=== PATIENT | male | born 1940 | race Caucasian/White ===

== ENCOUNTER 2022-05-16 08:52 | Outpatient (CLI) | payer MEDICARE ==
[~2022-05-16 08:52] MED LIST: ALBU2.5V7 NEB; AMOX-580 PO; ASPI-611 PO; ATOR40TA PO; FLO0.4C PO; FLUT1AER INH; FURO40TA4 PO; IPRA3AMP9 NEB; LISI20TA28 PO; O2 NAS; PANT-47 PO; PRED20TA PO; iron PO
== END 2022-05-16 23:59 | disposition home or self-care (01) ==
LOC: RT 08:52
PROVIDERS: ATTEND Internal Medicine Critical Care Medicine
DX: J44.9 Chronic obstructive pulmonary disease, unspecified (principal); I10 Essential (primary) hypertension; F41.9 Anxiety disorder, unspecified; Z95.5 Presence of coronary angioplasty implant and graft
CPT/HCPCS: 94618

== ENCOUNTER 2022-08-13 14:22 | Inpatient (IN) | payer MEDICARE ==
[~2022-08-13] VITALS: Ht 175.3 cm; Wt 84.1 kg
[2022-08-13] MEDS ORDERED: ipratropium/albuterol 3ml nebule NEB ONE (14:35)
[2022-08-13] MEDS ORDERED: methylPREDNISolone sod succ 125mg/2ml vial IV ONE (14:35)
[2022-08-13 15:05] LABS: ABG BASE EXCESS 0.9 mmol/L (-2.0-2.0); ABG HCO3 30.2 mmol/L (22.0-26.0); ABG OXYGEN SATURATION 96.4 % (94-97); ABG PCO2 (T) 74.7 mmHg (35.0-48.0); ALLEN'S TEST POSITIVE; FCOHb 0.3 % (0.0-3.9); FMetHb 0.4 % (0.0-1.5); FO2Hb 95.7 % (94-97); RESPIRATORY RATE 10 b/min; TIDAL VOLUME 519 mL; TOTAL HEMOGLOBIN 11.7 G/dl (14.0-17.9)
[2022-08-13 15:05] LABS: BASOPHILS % (AUTO) 0.2 % (0-1); EOSINOPHILS % (AUTO) 0.4 % (0-6); HEMATOCRIT 35.6 % (42.0-52.0); HEMOGLOBIN 11.2 g/dl (14.0-17.9); LYMPHOCYTES # (AUTO) 1.7 X10'3 (1.1-4.8); LYMPHOCYTES % (AUTO) 12.8 % (21-51); MEAN CORPUSCULAR HEMOGLOBIN 31.4 PG (27.0-31.0); MEAN CORPUSCULAR HGB CONC 31.6 g/dL (33.0-36.5); MEAN CORPUSCULAR VOLUME 99.5 FL (78-98); MEAN PLATELET VOLUME 7.5 FL (7.4-10.4); MONOCYTES # (AUTO) 2.3 X10'3 (0-0.9); MONOCYTES % (AUTO) 17.4 % (2-12); NEUTROPHILS # (AUTO) 9.2 X10'3 (1.8-7.7); NEUTROPHILS % (AUTO) 69.2 % (42-75); PLATELET COUNT 281 X10'3 (140-440); RED BLOOD COUNT 3.58 X10'6 (4.70-6.10); RED CELL DISTRIBUTION WIDTH 13.8 % (11.5-14.5); WHITE BLOOD COUNT 13.3 X10'3 (4.5-11.0)
[2022-08-13 15:14] LABS: ALANINE AMINOTRANSFERASE 41 U/L (12-78); ALBUMIN 3.2 G/DL (3.4-5.0); ALBUMIN/GLOBULIN RATIO 0.7 (1.1-1.5); ALKALINE PHOSPHATASE 64 IU/L (46-116); ANION GAP 9 (8-16); ASPARTATE AMINO TRANSFERASE 21 U/L (10-37); BILIRUBIN,TOTAL 0.3 MG/DL (0.1-1.0); BLOOD UREA NITROGEN 71 MG/DL (7-18); BUN/CREATININE RATIO 31.1 (10.0-20.0); CALCIUM 9.5 MG/DL (8.5-10.1); CHLORIDE 106 MMOL/L (99-107); CREATININE 2.28 MG/DL (0.60-1.10); GLUCOSE 166 MG/DL (70-104); POTASSIUM 4.5 MMOL/L (3.5-5.1); SODIUM 146 MMOL/L (135-145); TOTAL CARBON DIOXIDE 30.8 MMOL/L (24-32); TOTAL PROTEIN 7.7 G/DL (6.4-8.2); eGFR 28 ML/MIN
[2022-08-13 16:34] LABS: ABG BASE EXCESS -2.9 mmol/L (-2.0-2.0); ABG PCO2 (T) 66.5 mmHg (35.0-48.0); ABG PO2 (T) 129.4 mmHg (75.0-100.0); ALLEN'S TEST POSITIVE; FCOHb 0.3 % (0.0-3.9); FMetHb 0.3 % (0.0-1.5); FO2Hb 97.4 % (94-97); RESPIRATORY RATE 10 b/min; TIDAL VOLUME 455 mL; TOTAL HEMOGLOBIN 11.7 G/dl (14.0-17.9)
[2022-08-13] MEDS ORDERED: magnesium 2GM in 50ml NS 50 ML IV PRN (16:55)
[2022-08-13] MEDS ORDERED: magnesium 4gm in 100ml NS 100 ML IV PRN (16:55)
[2022-08-13] MEDS ORDERED: magnesium Cl slow-release 64mg tablet PO PRN (16:55)
[2022-08-13] MEDS ORDERED: potassium Cl 40MEQ/1/2NS 520ml 520 ML IV PRN (16:55)
[2022-08-13] MEDS ORDERED: normal saline 1000ml 1,000 ML IV SCH (16:55)
[2022-08-13] MEDS ORDERED: acetaminophen 325mg tablet PO PRN ×2 (16:55)
[2022-08-13] MEDS ORDERED: potassium Cl 20 mEq SR tablet PO PRN ×2 (16:55)
[2022-08-13] MEDS ORDERED: ondansetron/PF 4mg/2ml inj IV PRN (16:55)
[2022-08-13] MEDS: albuterol 2.5 MG/3 ML nebule NEB SCH ×2 (19:24→23:04)
[2022-08-13] MEDS: enoxaparin 40mg/0.4ml syringe SQ SCH (19:53)
[2022-08-13] MEDS: methylPREDNISolone sod succ 125mg/2ml vial IV SCH (19:53)
--- NOTE | 2022-08-13 20:43 | NUR ---
Patient given sandwich, placed on nasal cannula and is tolerating well. at bedside.
--- NOTE | 2022-08-13 22:20 | NUR ---
Received report from ED RNZo
[2022-08-13 22:45] VITALS: BP 113/67
[2022-08-14 03:00] VITALS: BP 141/56
[2022-08-14] MEDS: albuterol 2.5 MG/3 ML nebule NEB SCH ×5 (03:01→19:24)
[2022-08-14 06:00] VITALS: BP 98/53
--- NOTE | 2022-08-14 06:40 | NUR ---
Problems reprioritized. Patient report given, questions answered & plan of care reviewed with EARL Dumont.
--- NOTE | 2022-08-14 06:54 | NUR ---
Patient in room PCU 3017. I have received report from EARL ALBERT, and had the opportunity to ask questions and assume patient care.
[2022-08-14 07:10] LABS: BASOPHILS % (AUTO) 0 % (0-1); EOSINOPHILS % (AUTO) 0 % (0-6); HEMATOCRIT 32.1 % (42.0-52.0); HEMOGLOBIN 10.2 g/dl (14.0-17.9); LYMPHOCYTES # (AUTO) 0.6 X10'3 (1.1-4.8); LYMPHOCYTES % (AUTO) 4.6 % (21-51); MEAN CORPUSCULAR HEMOGLOBIN 31.2 PG (27.0-31.0); MEAN CORPUSCULAR HGB CONC 31.7 g/dL (33.0-36.5); MEAN CORPUSCULAR VOLUME 98.5 FL (78-98); MEAN PLATELET VOLUME 7.8 FL (7.4-10.4); MONOCYTES # (AUTO) 0.5 X10'3 (0-0.9); NEUTROPHILS # (AUTO) 11.7 X10'3 (1.8-7.7); NEUTROPHILS % (AUTO) 91.4 % (42-75); PLATELET COUNT 274 X10'3 (140-440); RED BLOOD COUNT 3.25 X10'6 (4.70-6.10); RED CELL DISTRIBUTION WIDTH 13.6 % (11.5-14.5); WHITE BLOOD COUNT 12.8 X10'3 (4.5-11.0)
[2022-08-14 07:28] LABS: ALANINE AMINOTRANSFERASE 37 U/L (12-78); ALBUMIN 2.8 G/DL (3.4-5.0); ALBUMIN/GLOBULIN RATIO 0.7 (1.1-1.5); ALKALINE PHOSPHATASE 60 IU/L (46-116); ANION GAP 11 (8-16); ASPARTATE AMINO TRANSFERASE 18 U/L (10-37); BILIRUBIN,TOTAL 0.2 MG/DL (0.1-1.0); BLOOD UREA NITROGEN 81 MG/DL (7-18); CALCIUM 9.5 MG/DL (8.5-10.1); CHLORIDE 107 MMOL/L (99-107); CREATININE 2.53 MG/DL (0.60-1.10); GLUCOSE 160 MG/DL (70-104); POTASSIUM 4.7 MMOL/L (3.5-5.1); SODIUM 147 MMOL/L (135-145); TOTAL CARBON DIOXIDE 29.3 MMOL/L (24-32); eGFR 25 ML/MIN
[2022-08-14 07:51] LABS: ABG BASE EXCESS 1.6 mmol/L (-2.0-2.0); ABG HCO3 27.4 mmol/L (22.0-26.0); ABG OXYGEN SATURATION 93.9 % (94-97); ABG PCO2 (T) 48.9 mmHg (35.0-48.0); ABG PO2 (T) 72.6 mmHg (75.0-100.0); ALLEN'S TEST POSITIVE; FCOHb 0.3 % (0.0-3.9); FMetHb 0.2 % (0.0-1.5); FO2Hb 93.4 % (94-97); RESPIRATORY RATE 10 b/min; TIDAL VOLUME 648 mL; TOTAL HEMOGLOBIN 10.2 G/dl (14.0-17.9)
[2022-08-14] MEDS: methylPREDNISolone sod succ 125mg/2ml vial IV SCH ×2 (08:59→20:05)
[2022-08-14] MEDS: CefTRIAXone 2gm/D5W 50ml BAG 50 ML IV SCH (09:00)
[2022-08-14 11:00] VITALS: BP 90/51
[2022-08-14 15:00] VITALS: BP 140/50
[2022-08-14 18:00] VITALS: BP 137/43
--- NOTE | 2022-08-14 18:27 | NUR ---
ATTEMPTED TO PLACE BIPAP ON PT THROUGHOUT THE DAY, PT EDUCATED ON THE BENEFITS OF BIPAP, PT ALWAYS REFUSED. NOTIFIED.
--- NOTE | 2022-08-14 18:28 | NUR ---
Problems reprioritized. Patient report given, questions answered & plan of care reviewed with EARL MANZANO.
[2022-08-14] MEDS: enoxaparin 40mg/0.4ml syringe SQ SCH (20:05)
[2022-08-14] MEDS ORDERED: ipratropium/albuterol 3ml nebule NEB PRN (20:10)
[2022-08-14 22:00] VITALS: BP 99/69
[2022-08-14] MEDS: ipratropium/albuterol 3ml nebule NEB SCH (23:30)
[2022-08-14] MEDS: dextrose 5%-water 1,000 ML IV SCH (23:30)
[2022-08-15 03:11] VITALS: BP 105/72
[2022-08-15 06:00] VITALS: BP 148/48
--- NOTE | 2022-08-15 06:26 | NUR ---
Problems reprioritized. Patient report given, questions answered & plan of care reviewed with EARL TOWNSEND.
[2022-08-15 06:36] LABS: BASOPHILS % (AUTO) 0 % (0-1); EOSINOPHILS % (AUTO) 0 % (0-6); HEMOGLOBIN 10.3 g/dl (14.0-17.9); LYMPHOCYTES # (AUTO) 0.7 X10'3 (1.1-4.8); LYMPHOCYTES % (AUTO) 3.5 % (21-51); MEAN CORPUSCULAR HEMOGLOBIN 31.8 PG (27.0-31.0); MEAN CORPUSCULAR HGB CONC 32.1 g/dL (33.0-36.5); MEAN CORPUSCULAR VOLUME 98.9 FL (78-98); MEAN PLATELET VOLUME 7.8 FL (7.4-10.4); MONOCYTES # (AUTO) 1.3 X10'3 (0-0.9); NEUTROPHILS % (AUTO) 89.5 % (42-75); PLATELET COUNT 275 X10'3 (140-440); RED BLOOD COUNT 3.23 X10'6 (4.70-6.10); RED CELL DISTRIBUTION WIDTH 13.7 % (11.5-14.5)
[2022-08-15 07:00] LABS: ALANINE AMINOTRANSFERASE 42 U/L (12-78); ALBUMIN 2.7 G/DL (3.4-5.0); ALBUMIN/GLOBULIN RATIO 0.7 (1.1-1.5); ALKALINE PHOSPHATASE 59 IU/L (46-116); ANION GAP 11 (8-16); ASPARTATE AMINO TRANSFERASE 27 U/L (10-37); BILIRUBIN,TOTAL 0.1 MG/DL (0.1-1.0); BLOOD UREA NITROGEN 91 MG/DL (7-18); BUN/CREATININE RATIO 37.6 (10.0-20.0); CALCIUM 9.2 MG/DL (8.5-10.1); CHLORIDE 105 MMOL/L (99-107); CREATININE 2.42 MG/DL (0.60-1.10); GLUCOSE 165 MG/DL (70-104); POTASSIUM 4.6 MMOL/L (3.5-5.1); SODIUM 144 MMOL/L (135-145); TOTAL PROTEIN 6.5 G/DL (6.4-8.2); eGFR 26 ML/MIN
--- NOTE | 2022-08-15 07:07 | NUR ---
Patient in room PCU 3017. I have received report from EARL MANZANO, and had the opportunity to ask questions and assume patient care. PT RESTING COMFORTABLY, NO S/S OF DISTRESS. WILL CONTINUE TO MONITOR.
[2022-08-15] MEDS: methylPREDNISolone sod succ 125mg/2ml vial IV SCH (07:29)
[2022-08-15] MEDS: CefTRIAXone 2gm/D5W 50ml BAG 50 ML IV SCH (07:29)
[2022-08-15] MEDS: dextrose 5%-water 1,000 ML IV SCH ×2 (07:32→16:10)
[2022-08-15] MEDS: ipratropium/albuterol 3ml nebule NEB SCH ×5 (08:33→23:39)
[2022-08-15 11:00] VITALS: BP 147/45
[2022-08-15 12:19] LABS: CLARITY,URINE CLEAR (Clear); COLOR,URINE YELLOW (Yellow); GLUCOSE, URINE NEGATIVE (Neg); KETONES,URINE NEGATIVE (Neg); LEUKOCYTE ESTERASE ,URINE NEGATIVE (Neg); NITRITES, URINE NEGATIVE (Neg); OCCULT BLOOD,URINE SMALL (Neg); PH,URINE 5.5 (4.8-8.0); PROTEIN,URINE TRACE mg/dl (Neg); UROBILINOGEN,URINE 0.2 E.U/dL (0.2-1.0)
[2022-08-15 12:21] LABS: UA COLLECTION TYPE NON-SPECIFIED
[2022-08-15 12:22] LABS: SODIUM,URINE RANDOM < 15 MEQ/L; TOTAL PROTEIN,URINE RANDOM 38.1 MG/DL
[2022-08-15 12:27] LABS: BACTERIA,URINE FEW /HPF (Neg); MUCUS STRANDS FEW /LPF (Neg); RBC,URINE 0-2 /HPF (0-2); SQUAMOUS EPITHELIAL CELL,UR FEW /LPF (FEW); WBC,URINE NONE SEEN /HPF (0-4)
[2022-08-15 12:29] LABS: OSMOLALITY UA 489 MOSM/K (50-1400)
[2022-08-15 12:50] LABS: UA EOSINOPHILS NO EOS /HPF
[2022-08-15] MEDS ORDERED: FLO0.4C PO (13:05)
[2022-08-15] MEDS ORDERED: PANT40TA54 PO (13:05)
[2022-08-15] MEDS ORDERED: AMLO5TAB16 PO (13:05)
[2022-08-15] MEDS ORDERED: FURO40TA4 PO (13:05)
[2022-08-15] MEDS ORDERED: ATOR40TA72 PO (13:05)
[2022-08-15 15:00] VITALS: BP_SYST 111; BP_SYST 125; BP_DIAS 52; BP_DIAS 89
[2022-08-15 18:00] VITALS: BP 128/54
--- NOTE | 2022-08-15 18:47 | NUR ---
Problems reprioritized. Patient report given, questions answered & plan of care reviewed with EARL MANZANO.
[2022-08-15] MEDS: tamsulosin 0.4mg capsule PO SCH (20:17)
[2022-08-15] MEDS: heparin, porcine 5000 units/ml vial SQ SCH (20:17)
[2022-08-15] MEDS: atorvastatin 20mg tablet PO SCH (20:17)
[2022-08-15] MEDS: methylPREDNISolone sod succ/PF 40mg inj. IV SCH (20:18)
[2022-08-15 22:00] VITALS: BP 132/42
[2022-08-16] MEDS: dextrose 5%-water 1,000 ML IV SCH ×3 (00:12→22:10)
[2022-08-16 02:00] VITALS: BP 131/87
[2022-08-16] MEDS: ipratropium/albuterol 3ml nebule NEB SCH ×5 (02:54→23:45)
[2022-08-16 06:00] VITALS: BP 133/100
--- NOTE | 2022-08-16 06:19 | NUR ---
Problems reprioritized. Patient report given, questions answered & plan of care reviewed with EARL TOWNSEND.
--- NOTE | 2022-08-16 07:08 | NUR ---
Patient in room PCU 3017. I have received report from EARL MANZANO, and had the opportunity to ask questions and assume patient care.
[2022-08-16 07:24] LABS: BASOPHILS % (AUTO) 0.1 % (0-1); EOSINOPHILS % (AUTO) 0 % (0-6); HEMATOCRIT 32.6 % (42.0-52.0); HEMOGLOBIN 10.4 g/dl (14.0-17.9); LYMPHOCYTES # (AUTO) 0.6 X10'3 (1.1-4.8); MEAN CORPUSCULAR HEMOGLOBIN 31.7 PG (27.0-31.0); MEAN CORPUSCULAR HGB CONC 31.8 g/dL (33.0-36.5); MEAN CORPUSCULAR VOLUME 99.7 FL (78-98); MEAN PLATELET VOLUME 7.6 FL (7.4-10.4); MONOCYTES # (AUTO) 1.3 X10'3 (0-0.9); MONOCYTES % (AUTO) 6.3 % (2-12); NEUTROPHILS # (AUTO) 18.5 X10'3 (1.8-7.7); NEUTROPHILS % (AUTO) 90.6 % (42-75); PLATELET COUNT 303 X10'3 (140-440); RED BLOOD COUNT 3.27 X10'6 (4.70-6.10); WHITE BLOOD COUNT 20.4 X10'3 (4.5-11.0)
[2022-08-16 07:56] LABS: ALANINE AMINOTRANSFERASE 48 U/L (12-78); ALBUMIN 2.5 G/DL (3.4-5.0); ALBUMIN/GLOBULIN RATIO 0.7 (1.1-1.5); ALKALINE PHOSPHATASE 55 IU/L (46-116); ANION GAP 6 (8-16); ASPARTATE AMINO TRANSFERASE 34 U/L (10-37); BILIRUBIN,TOTAL 0.1 MG/DL (0.1-1.0); BLOOD UREA NITROGEN 81 MG/DL (7-18); BUN/CREATININE RATIO 38.2 (10.0-20.0); CALCIUM 9.2 MG/DL (8.5-10.1); CHLORIDE 103 MMOL/L (99-107); CREATININE 2.12 MG/DL (0.60-1.10); GLUCOSE 175 MG/DL (70-104); POTASSIUM 5.1 MMOL/L (3.5-5.1); SODIUM 139 MMOL/L (135-145); TOTAL CARBON DIOXIDE 30.4 MMOL/L (24-32); TOTAL PROTEIN 6.3 G/DL (6.4-8.2); eGFR 30 ML/MIN
[2022-08-16] MEDS: methylPREDNISolone sod succ/PF 40mg inj. IV SCH ×2 (08:10→21:17)
[2022-08-16] MEDS: CefTRIAXone 2gm/D5W 50ml BAG 50 ML IV SCH (08:12)
[2022-08-16] MEDS: tamsulosin 0.4mg capsule PO SCH ×2 (08:15→21:16)
[2022-08-16] MEDS: amLODIPine 5mg tablet PO SCH (08:16)
[2022-08-16] MEDS: heparin, porcine 5000 units/ml vial SQ SCH ×2 (08:17→21:17)
[2022-08-16 11:00] VITALS: BP 129/56
[2022-08-16 15:00] VITALS: BP 180/58
[2022-08-16] MEDS: mag hydrox/Alum hydrox/simeth 30ml oral suspension PO PRN (15:40)
[2022-08-16 18:00] VITALS: BP_SYST 116; BP_SYST 166; BP_DIAS 57
[2022-08-16] MEDS: atorvastatin 20mg tablet PO SCH (21:16)
[2022-08-16 22:00] VITALS: BP 152/116
[2022-08-17] MEDS: mag hydrox/Alum hydrox/simeth 30ml oral suspension PO PRN ×2 (00:09→08:03)
[2022-08-17 02:00] VITALS: BP 109/81
[2022-08-17] MEDS: dextrose 5%-water 1,000 ML IV SCH (02:31)
[2022-08-17 06:00] VITALS: BP 169/67
--- NOTE | 2022-08-17 07:05 | NUR ---
Problems reprioritized. Patient report given, questions answered & plan of care reviewed with Abbey Mendieta
--- NOTE | 2022-08-17 07:08 | NUR ---
Patient in room PCU 3017. I have received report from EARL Reyes and had the opportunity to ask questions and assume patient care.
[2022-08-17] MEDS: ipratropium/albuterol 3ml nebule NEB SCH ×2 (07:18→10:44)
[2022-08-17 07:49] LABS: BASOPHILS % (AUTO) 0 % (0-1); EOSINOPHILS % (AUTO) 0 % (0-6); HEMATOCRIT 34.9 % (42.0-52.0); HEMOGLOBIN 11.1 g/dl (14.0-17.9); LYMPHOCYTES # (AUTO) 0.6 X10'3 (1.1-4.8); LYMPHOCYTES % (AUTO) 2.8 % (21-51); MEAN CORPUSCULAR HEMOGLOBIN 31.5 PG (27.0-31.0); MEAN CORPUSCULAR HGB CONC 31.7 g/dL (33.0-36.5); MEAN CORPUSCULAR VOLUME 99.4 FL (78-98); MEAN PLATELET VOLUME 7.5 FL (7.4-10.4); MONOCYTES # (AUTO) 1.4 X10'3 (0-0.9); MONOCYTES % (AUTO) 6.5 % (2-12); NEUTROPHILS # (AUTO) 19.8 X10'3 (1.8-7.7); NEUTROPHILS % (AUTO) 90.7 % (42-75); PLATELET COUNT 335 X10'3 (140-440); RED BLOOD COUNT 3.51 X10'6 (4.70-6.10); RED CELL DISTRIBUTION WIDTH 13.7 % (11.5-14.5); WHITE BLOOD COUNT 21.8 X10'3 (4.5-11.0)
[2022-08-17 08:04] LABS: ALANINE AMINOTRANSFERASE 53 U/L (12-78); ALBUMIN 2.7 G/DL (3.4-5.0); ALBUMIN/GLOBULIN RATIO 0.7 (1.1-1.5); ALKALINE PHOSPHATASE 68 IU/L (46-116); ANION GAP 4 (8-16); ASPARTATE AMINO TRANSFERASE 38 U/L (10-37); BILIRUBIN,TOTAL 0.1 MG/DL (0.1-1.0); BLOOD UREA NITROGEN 80 MG/DL (7-18); CALCIUM 9.6 MG/DL (8.5-10.1); CHLORIDE 100 MMOL/L (99-107); GLUCOSE 161 MG/DL (70-104); POTASSIUM 5.3 MMOL/L (3.5-5.1); SODIUM 137 MMOL/L (135-145); TOTAL CARBON DIOXIDE 33.3 MMOL/L (24-32); TOTAL PROTEIN 6.5 G/DL (6.4-8.2); eGFR 32 ML/MIN
[2022-08-17 08:40] LABS: PLATELET ESTIMATE NORMAL; TOTAL CELLS COUNTED 100
[2022-08-17] MEDS: heparin, porcine 5000 units/ml vial SQ SCH (09:16)
[2022-08-17] MEDS: tamsulosin 0.4mg capsule PO SCH (09:17)
[2022-08-17] MEDS: amLODIPine 5mg tablet PO SCH (09:17)
[2022-08-17] MEDS: methylPREDNISolone sod succ/PF 40mg inj. IV SCH (09:18)
[2022-08-17] MEDS: CefTRIAXone 2gm/D5W 50ml BAG 50 ML IV SCH (09:29)
[2022-08-17 11:00] VITALS: BP 156/53
[2022-08-17] MEDS ORDERED: PRED20TA PO (11:22)
[2022-08-17] MEDS ORDERED: AMOX-117 PO (11:22)
--- NOTE | 2022-08-17 15:30 | NUR ---
Pt AOX4, VSS on 3L NC home O2. Pt's PIV removed with cannula intact. Pt's discharge paperwork reviewed and questions answered. Pt to p/u meds at own Pharmacy per pt request. Pt's at bedside and will be driving patient home. Pt in NAD.
== END 2022-08-17 15:23 | disposition home health service (06) | DRG 189 ==
LOC: ER 14:23 → ED HOLD 17:00 → EDBEDREQ 21:14 → PCU 3S 22:35
PROVIDERS: ADMIT Internal Medicine; ATTEND Family Medicine
PROC: 5A09357 Assistance with Respiratory Ventilation, Less than 24 Consecutive Hours, Continuous Positive Airway Pressure (ICD-10-PCS; principal; 2022-08-13)
PROC: 5A09357 Assistance with Respiratory Ventilation, Less than 24 Consecutive Hours, Continuous Positive Airway Pressure (ICD-10-PCS; 2022-08-14)
DX: J96.01 Acute respiratory failure with hypoxia (principal); N17.0 Acute kidney failure with tubular necrosis; J44.1 Chronic obstructive pulmonary disease with (acute) exacerbation; I13.0 Hypertensive heart and chronic kidney disease with heart failure and stage 1 through stage 4 chronic kidney disease, or unspecified chronic kidney disease; I50.32 Chronic diastolic (congestive) heart failure; E87.0 Hyperosmolality and hypernatremia; Z66 Do not resuscitate; Z20.822 Contact with and (suspected) exposure to COVID-19; I25.10 Atherosclerotic heart disease of native coronary artery without angina pectoris; N40.0 Benign prostatic hyperplasia without lower urinary tract symptoms; N18.30 Chronic kidney disease, stage 3 unspecified; Z60.2 Problems related to living alone; E78.00 Pure hypercholesterolemia, unspecified; Z83.3 Family history of diabetes mellitus; Z82.3 Family history of stroke; Z79.899 Other long term (current) drug therapy; Z79.82 Long term (current) use of aspirin; Z87.01 Personal history of pneumonia (recurrent); Z99.81 Dependence on supplemental oxygen
CPT/HCPCS: 36415; 36600; 71045; 76770; 80053; 81001; 82570; 82803; 83605; 83880; 83935; 84133; 84156; 84300; 84484; 85007; 85018; 85025; 85610; 87040; 87081; 87207; 87502; 87503; 87811; 93308; 94640; 94660; 94664; 94668; 94760; 97110; 97116; 97161; 97530; 99285; A4615; A6258; G0378; J0696; J1644; J1650; J2920; J2930; J7030; J7042; J7070

== ENCOUNTER 2022-12-11 12:34 | Inpatient (IN) | payer MEDICARE ==
[2022-12-11] VITALS (14 sets, daily range): BP systolic 64–131; BP diastolic 30–79; PULSE 66–101; RESP 17–27; TEMP 97.7–98.6; O2SAT 92–95
[~2022-12-11] VITALS: Ht 175.3 cm; Wt 65.6 kg
[~2022-12-11 12:34] MED LIST changes: -ALBU2.5V7 NEB; +AMLO5TAB16 PO; -AMOX-580 PO; -ASPI-611 PO; -ATOR40TA PO; +ATOR40TA72 PO; -FLUT1AER INH; -IPRA3AMP9 NEB; -O2 NAS; -PANT-47 PO; +PANT40TA54 PO; -PRED20TA PO; -iron PO
[2022-12-11] MEDS ORDERED: normal saline 1000ML IV soln IV ONE (12:35)
[2022-12-11] MEDS ORDERED: pantoprazole 40mg IV 80 MG in normal saline 100ml IV soln 100 ML IV ONE (12:35)
--- NOTE | 2022-12-11 12:51 | NUR ---
Dr. Quinonez at bedside currently. aware of low BP.
[2022-12-11 13:10] LABS: ABG BASE EXCESS -14.1 mmol/L (-2.0-2.0); ABG HCO3 12.4 mmol/L (22.0-26.0); ABG PCO2 (T) 31.3 mmHg (35.0-48.0); ABG PH (T) 7.216 (7.340-7.440); ABG PO2 (T) 88.3 mmHg (75.0-100.0); ALLEN'S TEST POSITIVE; FCOHb 0.3 % (0.0-3.9); FLOW 4 L/min; FO2Hb 95.7 % (94-97); MODE NC; TOTAL HEMOGLOBIN 10.2 G/dl (14.0-17.9)
[2022-12-11 13:22] LABS: APTT 33 SECONDS (22-32); PROTHROMBIN TIME 10.9 SECONDS (9.0-12.0)
[2022-12-11 13:26] LABS: ALANINE AMINOTRANSFERASE 29 U/L (12-78); ALBUMIN 3.9 G/DL (3.4-5.0); ALBUMIN/GLOBULIN RATIO 0.9 (1.1-1.5); ALKALINE PHOSPHATASE 59 IU/L (46-116); ANION GAP 20 (8-16); ASPARTATE AMINO TRANSFERASE 11 U/L (10-37); BILIRUBIN,TOTAL 0.3 MG/DL (0.1-1.0); BLOOD UREA NITROGEN 141 MG/DL (7-18); BUN/CREATININE RATIO 28.8 (10.0-20.0); CALCIUM 9.6 MG/DL (8.5-10.1); CHLORIDE 99 MMOL/L (99-107); GLUCOSE 164 MG/DL (70-104); POTASSIUM 3.4 MMOL/L (3.5-5.1); SODIUM 136 MMOL/L (135-145); TOTAL CARBON DIOXIDE 17.1 MMOL/L (24-32); TOTAL PROTEIN 8.4 G/DL (6.4-8.2); eCRCL 11 ML/MIN; eGFR 11 ML/MIN
[2022-12-11] MEDS ORDERED: octreotide inj. 1,250 MCG in normal saline 250ml IV soln 243.75 ML IV ONE (13:30)
[2022-12-11 13:32] LABS: BASOPHILS % (AUTO) 0.1 % (0-1); EOSINOPHILS % (AUTO) 0 % (0-6); HEMATOCRIT 36.6 % (42.0-52.0); HEMOGLOBIN 11.3 g/dl (14.0-17.9); LYMPHOCYTES # (AUTO) 0.7 X10'3 (1.1-4.8); LYMPHOCYTES % (AUTO) 3.1 % (21-51); MEAN CORPUSCULAR HEMOGLOBIN 29.2 PG (27.0-31.0); MEAN CORPUSCULAR HGB CONC 30.9 g/dL (33.0-36.5); MEAN CORPUSCULAR VOLUME 94.6 FL (78-98); MEAN PLATELET VOLUME 7.7 FL (7.4-10.4); MONOCYTES # (AUTO) 1.5 X10'3 (0-0.9); MONOCYTES % (AUTO) 6.8 % (2-12); NEUTROPHILS # (AUTO) 19.1 X10'3 (1.8-7.7); PLATELET COUNT 411 X10'3 (140-440); RED BLOOD COUNT 3.87 X10'6 (4.70-6.10); RED CELL DISTRIBUTION WIDTH 15.9 % (11.5-14.5); WHITE BLOOD COUNT 21.3 X10'3 (4.5-11.0)
[2022-12-11] MEDS ORDERED: KCENTRA PCC 500 UNIT/20 ML IV ONE (14:00)
--- NOTE | 2022-12-11 14:20 | NUR ---
Patient was transported to the GI lab for EGD by GI lab nurse, hands off report given to the nurse
--- NOTE | 2022-12-11 14:32 | NUR ---
Ordered KCentra and Sandostatin drip was not administered yet, medications endorsed to the GI lab nurse. I requested the nurse to administer them
[2022-12-11] MEDS ORDERED: LIDOcaine Viscous 15ml cup ONE (14:35)
[2022-12-11] MEDS ORDERED: MIDAZolam 1 MG/ML 5ML VIAL ONE (14:35)
[2022-12-11] MEDS ORDERED: fentaNYL/PF 50MCG/1 ML 2ML syringe ONE (14:35)
[2022-12-11] MEDS ORDERED: piperacillin/tazo 3.375gm/50ml 50 ML IV SCH (16:00)
[2022-12-11 17:10] LABS: BILIRUBIN,URINE NEGATIVE (Neg); CLARITY,URINE CLEAR (Clear); COLOR,URINE YELLOW (Yellow); GLUCOSE, URINE NEGATIVE (Neg); KETONES,URINE TRACE mg/dl (Neg); LEUKOCYTE ESTERASE ,URINE NEGATIVE (Neg); NITRITES, URINE NEGATIVE (Neg); OCCULT BLOOD,URINE SMALL (Neg); PROTEIN,URINE TRACE mg/dl (Neg); UROBILINOGEN,URINE 0.2 E.U/dL (0.2-1.0)
[2022-12-11 17:14] LABS: UA COLLECTION TYPE FOLEY CATH
[2022-12-11 17:15] LABS: BACTERIA,URINE NONE SEEN /HPF (Neg); MUCUS STRANDS FEW /LPF (Neg); RBC,URINE 0-2 /HPF (0-2); SQUAMOUS EPITHELIAL CELL,UR FEW /LPF (FEW); WBC,URINE 0-4 /HPF (0-4)
[2022-12-11 17:24] LABS: OCCULT BLOOD STOOL POSITIVE (Neg)
--- NOTE | 2022-12-11 17:27 | NUR ---
Patient wanted to talk to his regarding code status. was notified about this, she is on her way. Dr. Oh was notified that patient wish to talk to his first regarding code status
[2022-12-11] MEDS ORDERED: magnesium hydroxide 30ml (MOM) UD suspension PO PRN (17:55)
[2022-12-11] MEDS ORDERED: morphine 4 MG/ML inj SYRINge IV PRN (17:55)
[2022-12-11] MEDS ORDERED: ondansetron/PF 4mg/2ml inj IV PRN (17:55)
[2022-12-11] MEDS ORDERED: morphine 2 MG/ML inj. syringe IV PRN (17:55)
[2022-12-11] MEDS ORDERED: acetaminophen 325mg tablet PO PRN ×2 (17:55)
--- NOTE | 2022-12-11 17:59 | NUR ---
Per patient and , patient wish to be full code at this time. Dr. Oh aware of the low BP. 1 unit PRBC just started
[2022-12-11] MEDS ORDERED: ringers solution, lacted 1,000 ML IV ONE (18:05)
--- NOTE | 2022-12-11 18:08 | NUR ---
Dr. Oh notified about low BP again . He said to continue the blood transfusion at this time
[2022-12-11] MEDS ORDERED: LidoCAINE 2% Topical Jelly 11mL syringe TOP ONE (18:13)
[2022-12-11] MEDS ORDERED: LIDOCAINE 1%/EPI 1:100,000 inj. 10 ML multi-dose vial SQ ONE (18:45)
[2022-12-11] MEDS: NORepinephrine 8mg/ 250ml NS 250 ML IV SCH (19:54)
[2022-12-11] MEDS ORDERED: famotidine/PF 10 mg/ml inj IV SCH (20:00)
[2022-12-11] MEDS: sodium bicarbonate (8.4%) inj. 150 MEQ in dextrose 5%-water 1,000 ML IV SCH (20:11)
--- NOTE | 2022-12-11 22:30 | NUR ---
Patient in room ICU 2044. I have received report from Dee ELLIOTT and had the opportunity to ask questions and assume patient care. Patient arrived via gurney with blood transfsion and levophed currently infusing. Patient ALOC X4 and following commands appropriately. Patient transferred to hospital bed and tolerated well. Will continue to monitor patient closely.
[2022-12-12] VITALS (23 sets, daily range): BP systolic 91–137; BP diastolic 30–53; PULSE 75–95; RESP 19–31; O2SAT 90–98
[2022-12-12] MEDS: piperacillin/tazo 3.375gm/50ml 50 ML IV SCH ×3 (00:53→20:21)
[2022-12-12 01:17] LABS: ALBUMIN 2.6 G/DL (3.4-5.0); ANION GAP 19 (8-16); BLOOD UREA NITROGEN 140 MG/DL (7-18); BUN/CREATININE RATIO 29.4 (10.0-20.0); CALCIUM 7.8 MG/DL (8.5-10.1); CHLORIDE 105 MMOL/L (99-107); CREATININE 4.76 MG/DL (0.60-1.10); GLUCOSE 233 MG/DL (70-104); MAGNESIUM 1.6 MG/DL (1.5-2.4); PHOSPHORUS 6.5 MG/DL (2.3-4.5); POTASSIUM 3.3 MMOL/L (3.5-5.1); SODIUM 139 MMOL/L (135-145); TOTAL CARBON DIOXIDE 15.2 MMOL/L (24-32); eCRCL 11 ML/MIN; eGFR 12 ML/MIN
[2022-12-12 01:27] LABS: BASOPHILS % (AUTO) 0.1 % (0-1); EOSINOPHILS % (AUTO) 0 % (0-6); HEMOGLOBIN 10.3 g/dl (14.0-17.9); LYMPHOCYTES # (AUTO) 0.5 X10'3 (1.1-4.8); LYMPHOCYTES % (AUTO) 2.2 % (21-51); MEAN CORPUSCULAR HEMOGLOBIN 29.4 PG (27.0-31.0); MEAN CORPUSCULAR HGB CONC 32.4 g/dL (33.0-36.5); MEAN PLATELET VOLUME 7.6 FL (7.4-10.4); MONOCYTES # (AUTO) 2.8 X10'3 (0-0.9); MONOCYTES % (AUTO) 11.8 % (2-12); NEUTROPHILS # (AUTO) 20.1 X10'3 (1.8-7.7); NEUTROPHILS % (AUTO) 85.9 % (42-75); PLATELET COUNT 279 X10'3 (140-440); RED BLOOD COUNT 3.51 X10'6 (4.70-6.10); RED CELL DISTRIBUTION WIDTH 16.9 % (11.5-14.5); WHITE BLOOD COUNT 23.4 X10'3 (4.5-11.0)
[2022-12-12] MEDS: NORepinephrine 8mg/ 250ml NS 250 ML IV SCH ×2 (02:01→09:20)
[2022-12-12] MEDS: sodium bicarbonate (8.4%) inj. 150 MEQ in dextrose 5%-water 1,000 ML IV SCH ×3 (04:04→19:53)
--- NOTE | 2022-12-12 06:22 | NUR ---
Problems reprioritized. Patient report given, questions answered & plan of care reviewed with Samir ELLIOTT.
[2022-12-12 08:03] LABS: BASOPHILS % (AUTO) 0.1 % (0-1); EOSINOPHILS % (AUTO) 0 % (0-6); HEMATOCRIT 30.2 % (42.0-52.0); HEMOGLOBIN 9.9 g/dl (14.0-17.9); LYMPHOCYTES # (AUTO) 0.7 X10'3 (1.1-4.8); LYMPHOCYTES % (AUTO) 4.1 % (21-51); MEAN CORPUSCULAR HEMOGLOBIN 29.6 PG (27.0-31.0); MEAN CORPUSCULAR HGB CONC 32.7 g/dL (33.0-36.5); MEAN CORPUSCULAR VOLUME 90.4 FL (78-98); MEAN PLATELET VOLUME 7.4 FL (7.4-10.4); MONOCYTES # (AUTO) 2.1 X10'3 (0-0.9); MONOCYTES % (AUTO) 12.5 % (2-12); NEUTROPHILS % (AUTO) 83.3 % (42-75); PLATELET COUNT 245 X10'3 (140-440); RED BLOOD COUNT 3.34 X10'6 (4.70-6.10); RED CELL DISTRIBUTION WIDTH 17.4 % (11.5-14.5); WHITE BLOOD COUNT 16.8 X10'3 (4.5-11.0)
[2022-12-12 08:20] LABS: ALANINE AMINOTRANSFERASE 32 U/L (12-78); ALBUMIN 2.4 G/DL (3.4-5.0); ALBUMIN/GLOBULIN RATIO 0.8 (1.1-1.5); ALKALINE PHOSPHATASE 37 IU/L (46-116); ANION GAP 20 (8-16); ASPARTATE AMINO TRANSFERASE 44 U/L (10-37); BILIRUBIN,TOTAL 0.3 MG/DL (0.1-1.0); BLOOD UREA NITROGEN 141 MG/DL (7-18); CALCIUM 7.3 MG/DL (8.5-10.1); CHLORIDE 104 MMOL/L (99-107); GLUCOSE 218 MG/DL (70-104); MAGNESIUM 1.5 MG/DL (1.5-2.4); PHOSPHORUS 5.9 MG/DL (2.3-4.5); POTASSIUM 3.1 MMOL/L (3.5-5.1); SODIUM 139 MMOL/L (135-145); TOTAL PROTEIN 5.6 G/DL (6.4-8.2)
[2022-12-12 08:32] LABS: BUN/CREATININE RATIO 29.7 (10.0-20.0); CREATININE 4.75 MG/DL (0.60-1.10); eCRCL 11 ML/MIN; eGFR 12 ML/MIN
[2022-12-12 08:36] LABS: TOTAL CARBON DIOXIDE 14.7 MMOL/L (24-32)
[2022-12-12] MEDS ORDERED: potassium Cl 20 mEq SR tablet PO PRN (08:45)
[2022-12-12] MEDS: K and/or MAG REPLACEMENT MC SCH (08:45)
[2022-12-12] MEDS ORDERED: sodium phosphate inj. 30 MMOL in dextrose 5%-water 250 ML IV PRN (08:45)
[2022-12-12] MEDS ORDERED: magnesium 4gm in 100ml NS 100 ML IV PRN (08:45)
[2022-12-12] MEDS ORDERED: magnesium 2GM in 50ml NS 50 ML IV PRN (08:45)
[2022-12-12] MEDS ORDERED: Neutra Phos packet PO PRN (08:45)
[2022-12-12] MEDS ORDERED: sodium phosphate inj. 15 MMOL in dextrose 5%-water 250 ML IV PRN (08:45)
[2022-12-12 09:13] LABS: HEMOGLOBIN A1C 6.5 % (4.5-6.2)
[2022-12-12] MEDS ORDERED: DEXTROSE 15 GM of carb/4 tabs (each vial/BOTTLE has 4 tablets) PO PRN ×2 (10:15)
[2022-12-12] MEDS: amLODIPine 5mg tablet PO SCH (10:15)
[2022-12-12] MEDS ORDERED: azithromycin 250mg tablet PO SCH (10:15)
[2022-12-12] MEDS ORDERED: dextrose 50%-water 50ml dispensing syringe IV PRN ×2 (10:15)
[2022-12-12] MEDS ORDERED: glucagon, human recombinant 1mg kit SUBCUT PRN (10:15)
[2022-12-12] MEDS ORDERED: insulin Lispro (HumaLOG) vial - multi-dose SQ SCH (10:15)
[2022-12-12] MEDS ORDERED: vancomycin/NS 1 GM ADD-VANTAGE 250 ML IV PRN (10:55)
[2022-12-12] MEDS ORDERED: vancomycin 1,750 MG in NS 350ml IV soln IV ONE (11:00)
[2022-12-12] MEDS ORDERED: pantoprazole 40MG/NS 100ML BAG 100 ML IV SCH (11:00)
[2022-12-12] MEDS: pantoprazole 40MG/NS 100ML BAG 100 ML IV SCH ×2 (11:21→19:54)
[2022-12-12] MEDS ORDERED: potassium Cl 20mEq/100mL bag 100 ML IV ONE (11:25)
--- NOTE | 2022-12-12 12:35 | NUR ---
Noted pt presents with reddened to sacrum per RN physical assessment resulting in a wound care consult; pending [facility] note. Addendum: 12/12/22 at [address] Amended: Links added.
[2022-12-12 13:14] LABS: UA EOSINOPHILS NO EOS /HPF
--- NOTE | 2022-12-12 14:53 | NUR ---
PRESSURE ULCER EDUCATION: DEFINITION: A pressure ulcer is an area of skin that breaks down when you stay in one position too long. The constant pressure against the skin reduces the blood flow to that area and the affected tissue dies. CAUSES: "Being bedridden or in a wheelchair "Fragile skin "Having a chronic condition, such as diabetes or vascular disease "Inability to move certain parts of your body without assistance "Older age "Incontinence of urine or stool SYMPTOMS: "A reddened area that DOES NOT turn white when pressed on - this can be the beginning of a pressure ulcer "A blister, deep sore or a crater - these can be advanced pressure ulcers FIRST AID: "Relieve the pressure on this area "Keep the area clean and dry "Call your primary doctor if you see any of the above symptoms "DO NOT massage the area "DO NOT use a donut shaped or ring shaped pillow- these actually interfere with the blood flow and cause complications PREVENTION: "Check for pressure ulcers everyday "Change position at least every two hours to relieve pressure "Use items that help relieve pressure- pillows, sheepskin, foam padding, and powders. "Keep skin clean and dry "Eat healthy well balanced meals "Exercise daily IF YOU SEE ANY OF THESE SYMPTOMS WHILE IN THE HOSPITAL - TELL YOUR NURSE IMMEDIATELY. IF YOU SEE ANY OF THESE SYMPTOMS WHILE AT HOME OR HAVE ANY QUESTIONS OR CONCERNS ABOUT PRESSURE ULCERS - CALL YOUR PRIMARY DOCTOR IMMEDIATELY. Addendum: 12/12/22 at 1454 by Freddie Mariscal RN Amended: Links added.
[2022-12-12] MEDS: octreotide inj. 1,250 MCG in normal saline 250ml IV soln 243.75 ML IV SCH (16:05)
--- NOTE | 2022-12-12 18:26 | NUR ---
Patient in room ICU 2044. I have received report from Samir ELLIOTT and had the opportunity to ask questions and assume patient care.
[2022-12-12] MEDS: tamsulosin 0.4mg capsule PO SCH (19:53)
[2022-12-12] MEDS: atorvastatin 20mg tablet PO SCH (19:53)
[2022-12-12] MEDS: insulin glargine (Lantus) pen - multi-dose SQ SCH (21:00)
--- NOTE | 2022-12-12 21:30 | NUR ---
Tele MD Almaguer rounding on patient. updated on patient's current status. No new orders received.
[2022-12-13] VITALS (23 sets, daily range): BP systolic 95–142; BP diastolic 35–120; PULSE 66–95; RESP 12–27; O2SAT 93–98
[2022-12-13] MEDS: NORepinephrine 8mg/ 250ml NS 250 ML IV SCH (00:14)
[2022-12-13] MEDS: VANCOMYCIN LEVEL IV SCH (02:23)
[2022-12-13 03:02] LABS: BASOPHILS % (AUTO) 0.1 % (0-1); EOSINOPHILS % (AUTO) 0.1 % (0-6); HEMATOCRIT 28.2 % (42.0-52.0); HEMOGLOBIN 9.5 g/dl (14.0-17.9); LYMPHOCYTES % (AUTO) 8.2 % (21-51); MEAN CORPUSCULAR HEMOGLOBIN 29.8 PG (27.0-31.0); MEAN CORPUSCULAR HGB CONC 33.6 g/dL (33.0-36.5); MEAN CORPUSCULAR VOLUME 88.6 FL (78-98); MEAN PLATELET VOLUME 7.4 FL (7.4-10.4); MONOCYTES # (AUTO) 1.1 X10'3 (0-0.9); MONOCYTES % (AUTO) 8.9 % (2-12); NEUTROPHILS # (AUTO) 10.4 X10'3 (1.8-7.7); NEUTROPHILS % (AUTO) 82.7 % (42-75); PLATELET COUNT 213 X10'3 (140-440); RED BLOOD COUNT 3.18 X10'6 (4.70-6.10); RED CELL DISTRIBUTION WIDTH 17.2 % (11.5-14.5); WHITE BLOOD COUNT 12.6 X10'3 (4.5-11.0)
[2022-12-13 03:11] LABS: ANION GAP 17 (8-16); BLOOD UREA NITROGEN 137 MG/DL (7-18); BUN/CREATININE RATIO 33.6 (10.0-20.0); CALCIUM 7.1 MG/DL (8.5-10.1); CHLORIDE 104 MMOL/L (99-107); CREATININE 4.08 MG/DL (0.60-1.10); GLUCOSE 172 MG/DL (70-104); MAGNESIUM 1.4 MG/DL (1.5-2.4); PHOSPHORUS 3.6 MG/DL (2.3-4.5); SODIUM 143 MMOL/L (135-145); TOTAL CARBON DIOXIDE 21.6 MMOL/L (24-32); VANCOMYCIN,RANDOM 20.6 ug/mL (20.0-30.0); eCRCL 13 ML/MIN; eGFR 14 ML/MIN
[2022-12-13 03:23] LABS: POTASSIUM 2.7 MMOL/L (3.5-5.1)
[2022-12-13] MEDS: sodium bicarbonate (8.4%) inj. 150 MEQ in dextrose 5%-water 1,000 ML IV SCH ×3 (04:24→19:58)
[2022-12-13] MEDS: potassium Cl 40MEQ/270ML bag 270 ML IV PRN ×3 (04:24→17:57)
--- NOTE | 2022-12-13 06:24 | NUR ---
Problems reprioritized. Patient report given, questions answered & plan of care reviewed with Concepcion ELLIOTT.
--- NOTE | 2022-12-13 06:34 | NUR ---
Patient in room ICU 2044. I have received report from EARL Christine and had the opportunity to ask questions and assume patient care.
[2022-12-13] MEDS: amLODIPine 5mg tablet PO SCH (08:00)
[2022-12-13] MEDS: K and/or MAG REPLACEMENT MC SCH (08:00)
[2022-12-13] MEDS: pantoprazole 40MG/NS 100ML BAG 100 ML IV SCH ×2 (08:18→20:16)
[2022-12-13] MEDS: tamsulosin 0.4mg capsule PO SCH ×2 (08:18→20:16)
[2022-12-13] MEDS: piperacillin/tazo 3.375gm/50ml 50 ML IV SCH ×2 (08:20→20:16)
[2022-12-13 08:53] LABS: BILIRUBIN,URINE NEGATIVE (Neg); CLARITY,URINE SLIGHTLY CLOUDY (Clear); COLOR,URINE YELLOW (Yellow); GLUCOSE, URINE NEGATIVE (Neg); KETONES,URINE NEGATIVE (Neg); LEUKOCYTE ESTERASE ,URINE NEGATIVE (Neg); NITRITES, URINE NEGATIVE (Neg); OCCULT BLOOD,URINE LARGE (Neg); PH,URINE 5.5 (4.8-8.0); PROTEIN,URINE 30 mg/dl (Neg); UROBILINOGEN,URINE 0.2 E.U/dL (0.2-1.0)
[2022-12-13 08:54] LABS: UA COLLECTION TYPE NON-SPECIFIED
[2022-12-13 09:04] LABS: WBC,URINE 0-4 /HPF (0-4)
[2022-12-13 09:06] LABS: BACTERIA,URINE FEW /HPF (Neg); MUCUS STRANDS NONE SEEN /LPF (Neg); SQUAMOUS EPITHELIAL CELL,UR NONE SEEN /LPF (FEW)
[2022-12-13 09:46] LABS: TOTAL PROTEIN,URINE RANDOM 93.1 MG/DL
[2022-12-13 10:23] LABS: UA EOSINOPHILS NO EOS /HPF
--- NOTE | 2022-12-13 10:25 | NUR ---
JESS SCOTT'rachid per orders, pt tolerated well Addendum: 12/13/22 at 1632 by Concepcion Tomlinson RN please disregard, incorrect pt
[2022-12-13 10:30] LABS: POTASSIUM 2.9 MMOL/L (3.5-5.1)
--- NOTE | 2022-12-13 10:55 | NUR ---
Initial: Pt admit for GIB, PNA, sepsis, and GIANNI. Per RN at [facility] pt s/p EGD which showed esophagitis with no active bleeding. Pt seen by wound care, per note pt with an MASD to sacrum. Pt has been NPO with diet advanced to clear liquids this morning, pending first meal since diet advancement. LBM 12/13 per EMR. RN reports pt continues with tarry loose stool. Will continue to follow closely and monitor need for nutrition intervention pending trends in PO intake and diet advancement. Recommendations: 1) Advance to renal diet as medically indicated 2) Monitor need for ONS/additional protein 3) Bowel care per physician 4) Weekly scaled weights Addendum: 12/13/22 at [address] Amended: Links added.
[2022-12-13] MEDS: octreotide inj. 1,250 MCG in normal saline 250ml IV soln 243.75 ML IV SCH (17:14)
--- NOTE | 2022-12-13 18:28 | NUR ---
Problems reprioritized. Patient report given, questions answered & plan of care reviewed with EARL Bull.
[2022-12-13] MEDS: atorvastatin 20mg tablet PO SCH (20:17)
[2022-12-13] MEDS: insulin glargine (Lantus) pen - multi-dose SQ SCH (21:00)
[2022-12-14] VITALS (24 sets, daily range): BP systolic 86–141; BP diastolic 38–80; PULSE 54–110; RESP 13–25; O2SAT 90–99
[2022-12-14] MEDS: VANCOMYCIN LEVEL IV SCH (03:00)
[2022-12-14 03:32] LABS: BASOPHILS % (AUTO) 0.1 % (0-1); EOSINOPHILS # (AUTO) 0.2 X10'3 (0-0.9); EOSINOPHILS % (AUTO) 1.5 % (0-6); HEMOGLOBIN 9.9 g/dl (14.0-17.9); LYMPHOCYTES # (AUTO) 1.4 X10'3 (1.1-4.8); LYMPHOCYTES % (AUTO) 9.7 % (21-51); MEAN CORPUSCULAR HEMOGLOBIN 29.2 PG (27.0-31.0); MEAN CORPUSCULAR HGB CONC 32.9 g/dL (33.0-36.5); MEAN CORPUSCULAR VOLUME 88.8 FL (78-98); MEAN PLATELET VOLUME 7.6 FL (7.4-10.4); MONOCYTES # (AUTO) 1.5 X10'3 (0-0.9); MONOCYTES % (AUTO) 10.4 % (2-12); NEUTROPHILS # (AUTO) 11.1 X10'3 (1.8-7.7); NEUTROPHILS % (AUTO) 78.3 % (42-75); PLATELET COUNT 233 X10'3 (140-440); RED BLOOD COUNT 3.38 X10'6 (4.70-6.10); RED CELL DISTRIBUTION WIDTH 17.4 % (11.5-14.5); WHITE BLOOD COUNT 14.2 X10'3 (4.5-11.0)
[2022-12-14 03:39] LABS: ANION GAP 9 (8-16); BLOOD UREA NITROGEN 107 MG/DL (7-18); BUN/CREATININE RATIO 33.1 (10.0-20.0); CALCIUM 7.3 MG/DL (8.5-10.1); CHLORIDE 106 MMOL/L (99-107); CREATININE 3.23 MG/DL (0.60-1.10); GLUCOSE 150 MG/DL (70-104); PHOSPHORUS 2.1 MG/DL (2.3-4.5); SODIUM 148 MMOL/L (135-145); TOTAL CARBON DIOXIDE 32.6 MMOL/L (24-32); VANCOMYCIN,RANDOM 14.9 ug/mL (20.0-30.0); eCRCL 16 ML/MIN; eGFR 18 ML/MIN
[2022-12-14 04:12] LABS: POTASSIUM 2.8 MMOL/L (3.5-5.1)
[2022-12-14] MEDS: sodium bicarbonate (8.4%) inj. 150 MEQ in dextrose 5%-water 1,000 ML IV SCH (05:00)
--- NOTE | 2022-12-14 06:00 | NUR ---
Patient in room ICU 2044. I have received report from EARL Bull and had the opportunity to ask questions and assume patient care.
[2022-12-14] MEDS ORDERED: vancomycin/NS 1 GM ADD-VANTAGE 250 ML IV ONE (08:00)
[2022-12-14] MEDS: tamsulosin 0.4mg capsule PO SCH (09:00)
[2022-12-14] MEDS: pantoprazole 40MG/NS 100ML BAG 100 ML IV SCH ×2 (09:03→21:04)
[2022-12-14] MEDS: piperacillin/tazo 3.375gm/50ml 50 ML IV SCH ×2 (09:03→21:04)
[2022-12-14] MEDS: normal saline 1000ml 1,000 ML IV SCH ×2 (11:01→22:26)
[2022-12-14 12:02] LABS: CREATINE KINASE 190 U/L (39-308)
[2022-12-14 12:11] LABS: POTASSIUM 3.1 MMOL/L (3.5-5.1)
[2022-12-14] MEDS: potassium Cl 20 mEq SR tablet PO PRN (16:11)
[2022-12-14] MEDS: mag hydrox/Alum hydrox/simeth 30ml oral suspension PO PRN (17:19)
--- NOTE | 2022-12-14 18:24 | NUR ---
Problems reprioritized. Patient report given, questions answered & plan of care reviewed with EARL Bull.
[2022-12-14] MEDS: insulin glargine (Lantus) pen - multi-dose SQ SCH (21:00)
[2022-12-14] MEDS: atorvastatin 20mg tablet PO SCH (21:05)
[2022-12-14] MEDS: NORepinephrine 8mg/ 250ml NS 250 ML IV SCH (21:11)
[2022-12-14] MEDS: K and/or MAG REPLACEMENT MC SCH (21:11)
[2022-12-15] VITALS (11 sets, daily range): BP systolic 90–149; BP diastolic 39–82; PULSE 64–101; RESP 15–24; TEMP 97.7–98.3; O2SAT 94–100
--- NOTE | 2022-12-15 02:58 | NUR ---
Report called to receiving nurse in telemetry. Transferred via wheelchair. Special Issues communicated to receiving nurse.
--- NOTE | 2022-12-15 03:10 | NUR ---
Patient in room PCU 3014. I have received report from [facility] AUTO TRANSMISSION TECHNICIAN and had the opportunity to ask questions and assume patient care.
[2022-12-15 03:18] LABS: BASOPHILS % (AUTO) 0.1 % (0-1); EOSINOPHILS # (AUTO) 0.3 X10'3 (0-0.9); EOSINOPHILS % (AUTO) 2.3 % (0-6); HEMATOCRIT 27.8 % (42.0-52.0); HEMOGLOBIN 9.1 g/dl (14.0-17.9); LYMPHOCYTES # (AUTO) 1.4 X10'3 (1.1-4.8); LYMPHOCYTES % (AUTO) 12.4 % (21-51); MEAN CORPUSCULAR HEMOGLOBIN 29.5 PG (27.0-31.0); MEAN CORPUSCULAR HGB CONC 32.6 g/dL (33.0-36.5); MEAN CORPUSCULAR VOLUME 90.4 FL (78-98); MEAN PLATELET VOLUME 7.3 FL (7.4-10.4); MONOCYTES # (AUTO) 1.3 X10'3 (0-0.9); MONOCYTES % (AUTO) 11.6 % (2-12); NEUTROPHILS # (AUTO) 8.2 X10'3 (1.8-7.7); NEUTROPHILS % (AUTO) 73.6 % (42-75); PLATELET COUNT 217 X10'3 (140-440); RED BLOOD COUNT 3.07 X10'6 (4.70-6.10); RED CELL DISTRIBUTION WIDTH 17.4 % (11.5-14.5); WHITE BLOOD COUNT 11.1 X10'3 (4.5-11.0)
[2022-12-15 03:28] LABS: GLUCOSE 116 MG/DL (70-104); POTASSIUM 3.4 MMOL/L (3.5-5.1); SODIUM 149 MMOL/L (135-145)
[2022-12-15 03:29] LABS: ALBUMIN 1.8 G/DL (3.4-5.0); ANION GAP 5 (8-16); BLOOD UREA NITROGEN 82 MG/DL (7-18); BUN/CREATININE RATIO 31.3 (10.0-20.0); CALCIUM 7.4 MG/DL (8.5-10.1); CHLORIDE 109 MMOL/L (99-107); CREATININE 2.62 MG/DL (0.60-1.10); MAGNESIUM 2.6 MG/DL (1.5-2.4); PHOSPHORUS 2.5 MG/DL (2.3-4.5); TOTAL CARBON DIOXIDE 34.7 MMOL/L (24-32); eCRCL 20 ML/MIN; eGFR 24 ML/MIN
--- NOTE | 2022-12-15 06:50 | NUR ---
Problems reprioritized. Patient report given, questions answered & plan of care reviewed with Rikki ELLIOTT.
[2022-12-15] MEDS: K and/or MAG REPLACEMENT MC SCH (06:56)
[2022-12-15] MEDS ORDERED: normal saline 1000ml 1,000 ML IV SCH ×3 (10:05→17:43)
[2022-12-15] MEDS: piperacillin/tazo 3.375gm/50ml 50 ML IV SCH ×2 (10:22→22:22)
[2022-12-15] MEDS: pantoprazole 40MG/NS 100ML BAG 100 ML IV SCH ×2 (10:22→22:22)
[2022-12-15] MEDS: potassium Cl 20 mEq SR tablet PO PRN ×3 (10:25→21:41)
[2022-12-15] MEDS: mag hydrox/Alum hydrox/simeth 30ml oral suspension PO PRN (10:30)
[2022-12-15] MEDS: insulin glargine (Lantus) pen - multi-dose SQ SCH (21:00)
[2022-12-15] MEDS: atorvastatin 20mg tablet PO SCH (21:41)
[2022-12-16 02:00] VITALS: BP 111/60; PULSE 80; RESP 17; TEMP 98.7; O2SAT 94
--- NOTE | 2022-12-16 03:00 | NUR ---
I AGREE WITH SLAB INSTALLER'S ASSESSMENT.
[2022-12-16 06:00] VITALS: BP 87/51; PULSE 89; RESP 23; TEMP 98.2; O2SAT 95
[2022-12-16] MEDS: piperacillin/tazo 3.375gm/50ml 50 ML IV SCH (08:00)
[2022-12-16] MEDS ORDERED: tamsulosin 0.4mg capsule PO SCH (08:00)
[2022-12-16] MEDS: pantoprazole 40MG/NS 100ML BAG 100 ML IV SCH (08:16)
[2022-12-16 08:39] LABS: BASOPHILS % (AUTO) 0.2 % (0-1); EOSINOPHILS # (AUTO) 0.2 X10'3 (0-0.9); EOSINOPHILS % (AUTO) 1.7 % (0-6); HEMATOCRIT 31.4 % (42.0-52.0); HEMOGLOBIN 10.1 g/dl (14.0-17.9); LYMPHOCYTES # (AUTO) 1.4 X10'3 (1.1-4.8); LYMPHOCYTES % (AUTO) 10.3 % (21-51); MEAN CORPUSCULAR HEMOGLOBIN 29.3 PG (27.0-31.0); MEAN CORPUSCULAR HGB CONC 32.2 g/dL (33.0-36.5); MEAN CORPUSCULAR VOLUME 90.9 FL (78-98); MEAN PLATELET VOLUME 7.3 FL (7.4-10.4); MONOCYTES # (AUTO) 1.9 X10'3 (0-0.9); MONOCYTES % (AUTO) 13.5 % (2-12); NEUTROPHILS # (AUTO) 10.3 X10'3 (1.8-7.7); NEUTROPHILS % (AUTO) 74.3 % (42-75); PLATELET COUNT 253 X10'3 (140-440); RED BLOOD COUNT 3.45 X10'6 (4.70-6.10); RED CELL DISTRIBUTION WIDTH 16.8 % (11.5-14.5); WHITE BLOOD COUNT 13.9 X10'3 (4.5-11.0)
[2022-12-16 09:16] LABS: ALBUMIN 2.2 G/DL (3.4-5.0); ANION GAP 7 (8-16); BLOOD UREA NITROGEN 58 MG/DL (7-18); BUN/CREATININE RATIO 25.8 (10.0-20.0); CALCIUM 8.2 MG/DL (8.5-10.1); CHLORIDE 106 MMOL/L (99-107); CREATININE 2.25 MG/DL (0.60-1.10); GLUCOSE 127 MG/DL (70-104); MAGNESIUM 2.4 MG/DL (1.5-2.4); PHOSPHORUS 2.1 MG/DL (2.3-4.5); POTASSIUM 3.6 MMOL/L (3.5-5.1); SODIUM 145 MMOL/L (135-145); TOTAL CARBON DIOXIDE 31.7 MMOL/L (24-32); eCRCL 23 ML/MIN; eGFR 28 ML/MIN
[2022-12-16] MEDS ORDERED: tamsulosin capsule PO (10:08)
[2022-12-16] MEDS ORDERED: AMOX-580 PO (10:08)
[2022-12-16 10:14] LABS: ANISOCYTOSIS 1+; PLATELET ESTIMATE NORMAL; TOTAL CELLS COUNTED 100
[2022-12-16 11:00] VITALS: BP 131/82; PULSE 71; RESP 18; TEMP 98.3; O2SAT 93
--- NOTE | 2022-12-16 11:37 | NUR ---
Pt D/C per hospitalist. PIV removed, cannula intact. Tele discontinued. All belongings taken home by patient. Reviewed discharge instructions with patient and spouse, all questions and concerns addressed. Prescription e-scribed to [facility]'s pharmacy ([facility] Pt was wheeled down to lobby by RN and taken home by patient's spouse. Pt was alert and appropriate for discharge.
== END 2022-12-16 12:46 | disposition home health service (06) | DRG 871 ==
LOC: ER 12:34 → ED HOLD 18:01 → ICU 2S 22:15 → PCU 3S 12-15 03:09
PROVIDERS: ADMIT Internal Medicine Critical Care Medicine; ATTEND Internal Medicine Critical Care Medicine
PROC: 02HV33Z Insertion of Infusion Device into Superior Vena Cava, Percutaneous Approach (ICD-10-PCS; principal; 2022-12-11)
PROC: 30233N1 Transfusion of Nonautologous Red Blood Cells into Peripheral Vein, Percutaneous Approach (ICD-10-PCS; 2022-12-11)
PROC: 0DJ08ZZ Inspection of Upper Intestinal Tract, Via Natural or Artificial Opening Endoscopic (ICD-10-PCS; 2022-12-11)
DX: A41.9 Sepsis, unspecified organism (principal); J18.9 Pneumonia, unspecified organism; N17.0 Acute kidney failure with tubular necrosis; R65.21 Severe sepsis with septic shock; J96.01 Acute respiratory failure with hypoxia; I13.0 Hypertensive heart and chronic kidney disease with heart failure and stage 1 through stage 4 chronic kidney disease, or unspecified chronic kidney disease; I48.20 Chronic atrial fibrillation, unspecified; D68.9 Coagulation defect, unspecified; N18.4 Chronic kidney disease, stage 4 (severe); J44.0 Chronic obstructive pulmonary disease with (acute) lower respiratory infection; K44.9 Diaphragmatic hernia without obstruction or gangrene; K21.00 Gastro-esophageal reflux disease with esophagitis, without bleeding; I50.9 Heart failure, unspecified; I25.10 Atherosclerotic heart disease of native coronary artery without angina pectoris; E78.00 Pure hypercholesterolemia, unspecified; E87.6 Hypokalemia; I95.9 Hypotension, unspecified; N40.0 Benign prostatic hyperplasia without lower urinary tract symptoms; Z79.899 Other long term (current) drug therapy; Z98.61 Coronary angioplasty status; Z83.3 Family history of diabetes mellitus; Z82.3 Family history of stroke; Z87.11 Personal history of peptic ulcer disease; Z79.01 Long term (current) use of anticoagulants
CPT/HCPCS: 36415; 36430; 36600; 43235; 71045; 76770; 80048; 80053; 80202; 81001; 82140; 82272; 82550; 82570; 82803; 82948; 83036; 83605; 83735; 83874; 83880; 84100; 84132; 84145; 84156; 84300; 84484; 85007; 85018; 85025; 85610; 85730; 86885; 86900; 86901; 86920; 87040; 87081; 87207; 93306; 96365; 96367; 97116; 97161; 97530; 97535; 99152; 99291; A4615; A4620; A5200; A6213; A6250; A6449; C1751; C1758; C9113; G0378; J1815; J2250; J2354; J2543; J3010; J3370; J3475; J3480; J3490; J7030; J7040; J7050; J7070; J7120; J7168; P9016